=== PATIENT | male | born 1985 | race Two or more races ===

== ENCOUNTER 2018-12-15 14:54 | Emergency (ER) | payer BC, OTHER ==
[~2018-12-15] VITALS: Ht 177.8 cm; Wt 81.6 kg
[2018-12-15] MEDS ORDERED: SODIUM CHLORIDE 0.9% 1,000 ML IV ONE ×2 (15:11)
[2018-12-15] MEDS ORDERED: IOHEXOL 300 MG/ML 100ML BOTTLE IJ ONE (15:13)
[2018-12-15] MEDS ORDERED: HYDROmorphone HCL 2 MG/ML VL IV ONE ×2 (16:15→16:30)
[2018-12-15 16:21] LABS: Basophils # (auto) 0.1 uL; Basophils % (auto) 0.3 % (0.0-2.0); Eosinophils # (auto) 0.1 uL; Eosinophils % (auto) 0.6 % (0.0-7.0); Hemoglobin 13.2 g/dL (13.5-17.5); Lymphocytes # (auto) 0.9 uL; Lymphocytes % (auto) 4.8 % (10.0-50.0); Mean Corpuscular Hemoglobin 28.3 pg (28.0-32.0); Mean Corpuscular Hgb Conc. 32.2 g/dL (32.0-36.0); Monocytes # (auto) 0.9 uL; Monocytes % (auto) 4.5 % (0.0-12.0); Neutrophils # (auto) 17.6 uL; Neutrophils % (auto) 89.8 % (37.0-80.0); Platelet Count (auto) 335 10^3/uL (140-450); Red Blood Cells 4.65 10^6/uL (4.5-5.90); Red Cell Distribution Width 14.9 % (11.8-14.3); White Blood Cell 19.6 10^3/uL (4.4-10.8)
[2018-12-15] MEDS ORDERED: HYDROmorphone HCL 2 MG/ML VL ONE (16:26)
[2018-12-15 16:29] LABS: INR 0.94 (0.9-1.15); Partial Thromboplastin Time 23.1 sec (23.78-33.04); Prothrombin Time 10.1 sec (9.27-12.13)
[2018-12-15 16:31] LABS: Alanine Aminotransferase 29 U/L (16-61); Albumin 3.3 g/dL (3.4-5.0); Anion Gap 8 (5-15); Blood Urea Nitrogen 19 mg/dL (7-18); Calcium 7.9 mg/dL (8.5-10.1); Carbon Dioxide 23 mmol/L (21-32); Chloride 106 mmol/L (98-107); Glucose 99 mg/dL (74-106); Potassium 3.6 mmol/L (3.5-5.1); Sodium 137 mmol/L (136-145)
[2018-12-15 16:36] LABS: Alkaline Phosphatase 95 U/L (45-117); Aspartate Aminotransferase 30 U/L (15-37); Bilirubin, Total 0.6 mg/dL (0.2-1.0); GFR African American 111 mL/min; GFR Non-African American 91 mL/min; Total Protein 6.8 g/dL (6.4-8.2)
[2018-12-15 16:57] VITALS: BP 131/75
== END 2018-12-15 17:01 | disposition short-term general hospital (02) ==
LOC: ER 15:01
DX: S22.42XA Multiple fractures of ribs, left side, initial encounter for closed fracture (principal); J93.9 Pneumothorax, unspecified; J94.2 Hemothorax; V28.4XXA Motorcycle driver injured in noncollision transport accident in traffic accident, initial encounter; Y93.89 Activity, other specified; Y99.8 Other external cause status; Y92.410 Unspecified street and highway as the place of occurrence of the external cause
CPT/HCPCS: 32551; 36415; 70450; 71045; 71260; 74177; 80053; 84484; 85025; 85610; 85730; 96374; 96375; 99291; J1170; J7030; Q9967

== ENCOUNTER 2020-11-10 20:51 | Emergency (ER) | payer BC ==
[~2020-11-10] VITALS: Ht 180.3 cm; Wt 79.4 kg
[2020-11-10] MEDS ORDERED: LACTATED RINGER'S 1,000 ML IV ONE (21:15)
[2020-11-10] MEDS ORDERED: METOCLOPRAMIDE HCL 5MG/ml INJ 2ml VIAL IV ONE (21:30)
[2020-11-10 21:43] LABS: Red Cell Distribution Width 15.2 % (11.8-14.3)
[2020-11-10 21:45] LABS: Hematocrit 51.1 % (41.0-53.0); Hemoglobin 17.5 g/dL (13.5-17.5); Mean Corpuscular Hemoglobin 29.6 pg (28.0-32.0); Mean Corpuscular Hgb Conc. 34.3 g/dL (32.0-36.0); Mean Corpuscular Volume 86.2 fL (80.0-100.0); Platelet Count (auto) 165 10^3/uL (140-450); Red Blood Cells 5.93 10^6/uL (4.5-5.90); White Blood Cell 6.4 10^3/uL (4.4-10.8)
[2020-11-10 22:01] LABS: Basophils % (manual) 0 (0.0-2.0); Blast Cells 0; Eosinophils % (manual) 0 (0-7); Metamyelocytes % 0; Myelocytes % 0; Promyelocytes % 0
[2020-11-10 22:03] LABS: INR 1.65 (0.9-1.15)
[2020-11-10 22:04] LABS: Lactic Acid w/Reflex 2.6 mmol/L (0.4-2.0)
[2020-11-11] MEDS ORDERED: SODIUM CHLORIDE 0.9% 1,000 ML IV ONE (01:30)
[2020-11-11] MEDS ORDERED: MECLIZINE HCL 25 MG TAB PO ONE (02:30)
[2020-11-11 03:14] LABS: Urine Bacteria FEW /hpf (None Seen); Urine Blood Negative /uL (Negative); Urine Mucus FEW (None Seen); Urine Specific Gravity 1.012 (1.001-1.035); Urine WBC 4 /hpf (0 - 3)
[2020-11-11 03:16] VITALS: BP 135/78
[2020-11-11 04:10] LABS: Albumin 2.9 g/dL (3.4-5.0); Anion Gap 13 (5-15); Blood Urea Nitrogen 11 mg/dL (7-18); Calcium 8.1 mg/dL (8.5-10.1); Carbon Dioxide 24 mmol/L (21-32); Chloride 97 mmol/L (98-107); Glucose 110 mg/dL (74-106); Lipase 66 U/L (73-393); Magnesium 2.2 mg/dL (1.6-2.6); Potassium 3.9 mmol/L (3.5-5.1); Sodium 134 mmol/L (136-145)
[2020-11-11 04:13] LABS: BUN/Creatinine Ratio 13.4; GFR African American 138 mL/min; GFR Non-African American 114 mL/min
[2020-11-11 04:18] LABS: Alkaline Phosphatase 358 U/L (45-117); Bilirubin, Total 4.6 mg/dL (0.2-1.0); Total Protein 6.8 g/dL (6.4-8.2)
[2020-11-11 04:42] LABS: Aspartate Aminotransferase 10655 U/L (15-37)
[2020-11-11 05:24] LABS: Alanine Aminotransferase 11191 U/L (16-61)
[2020-11-11 05:32] LABS: Band Neutrophils % (manual) 4; Lymphocytes % (manual) 11 (10.0-50.0); Monocytes % (manual) 5 (0-12); Reactive Lymphocytes 11
== END 2020-11-11 05:19 | disposition home or self-care (01) ==
LOC: ER 20:52
DX: K52.9 Noninfective gastroenteritis and colitis, unspecified (principal); R42 Dizziness and giddiness; Z20.822 Contact with and (suspected) exposure to COVID-19
CPT/HCPCS: 36415; 71045; 80053; 81001; 83605; 83690; 83735; 84484; 85007; 85027; 85610; 87426; 93005; 96361; 96374; 99285; C9803; J2765; J8597; U0003

== ENCOUNTER 2023-04-15 07:27 | Emergency (ER) | payer BC ==
[~2023-04-15] VITALS: Ht 177.8 cm; Wt 82.0 kg
[2023-04-15 07:43] VITALS: BP 133/88; PULSE 102; RESP 18; TEMP 97.4; O2SAT 97
[2023-04-15] MEDS ORDERED: ACET-1304 PO (09:23)
[2023-04-15] MEDS ORDERED: IBUP-1454 PO (09:23)
== END 2023-04-15 09:38 | disposition home or self-care (01) ==
LOC: ER 07:27
DX: S93.602A Unspecified sprain of left foot, initial encounter (principal); Z79.1 Long term (current) use of non-steroidal anti-inflammatories (NSAID); Z79.899 Other long term (current) drug therapy; X50.1XXA Overexertion from prolonged static or awkward postures, initial encounter; Y93.89 Activity, other specified; Y92.89 Other specified places as the place of occurrence of the external cause; Y99.8 Other external cause status
CPT/HCPCS: 73630